=== PATIENT | female | born 1955 | race Caucasian/White ===

== ENCOUNTER 2021-08-15 16:06 | Emergency (ER) | payer OTHER, SELFPAY ==
[2021-08-15 16:38] VITALS: BP 138/71; PULSE 81; RESP 16; TEMP 36.3; O2SAT 97; BMI 21.8
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
[2021-08-15 18:33] VITALS: BP 128/69; PULSE 74; RESP 18; O2SAT 99
== END 2021-08-15 18:34 | disposition home or self-care (01) ==
PROVIDERS: Emergency Provider Registered Nurse
DX: S20.214A Contusion of middle front wall of thorax, initial encounter (principal); W22.8XXA Striking against or struck by other objects, initial encounter
CPT/HCPCS: 71045; 99281; 99283